=== PATIENT | female | born 1950 | race Caucasian/White ===

== ENCOUNTER 2016-05-22 09:35 | Day surgery (SDC) | payer OTHER ==
[2016-05-22 09:48] VITALS: BMI 28.1
[2016-05-22] MEDS ORDERED: PROPOFOL 20 ML ONE (11:18)
[2016-05-22] MEDS ORDERED: MIDAZOLAM HCL 2 MG/2 ML SINGLE DOSE VIAL ONE (11:18)
[2016-05-22] MEDS ORDERED: VASOPRESSIN 20 UNITS/ML VIAL IV ONE (11:23)
--- NOTE | 2016-05-22 11:24 | OP ---
Operative Note - Note: Operative Date: 05/22/16 Operation: Placement of midurethral sling Surgeon: Mio Mcintyre MD. Anesthesia: General Drains & Tubes with Location: mid urethral sling James Operative Report Dictated: Yes
[2016-05-22] MEDS ORDERED: ceFAZolin SODIUM 1 GM VIAL IVPB ONE (11:46)
[2016-05-22] MEDS ORDERED: ceFAZolin SODIUM 1 GM VIAL ONE (11:46)
[2016-05-22] MEDS ORDERED: HYDROmorphone HCL CARPU-JECT 1 MG/1 ML DISP.SYRIN IVPUSH PRN (14:11)
[2016-05-22] MEDS ORDERED: LACTATED RINGERS SOLUTION 1,000 ML IV SCH (14:15)
[2016-05-22 14:51] VITALS: TEMP 97.8
[2016-05-22] MEDS ORDERED: oxyCODONE HCL 5 MG TABLET PO PRN (15:20)
[2016-05-22 15:21] VITALS: BP 140/66; PULSE 77
--- NOTE | 2016-05-23 13:32 | PATH ---
Surgical Pathology Report Patient Name: HOLDEN FOX Med. Rec. #: [id number] /Age/Gender: 1950 (Age: 65) / F Account: [id number] Location: [facility] SURGICAL Taken: 05/22/2016 Received: 05/22/2016 Reported: 05/23/2016 Physicians: Mio Mcintyre M.D. Specimen(s) Received PORTION OF ANTERIOR VAGINAL WALL Clinical History Urinary incontinence Final Diagnosis PORTION OF ANTERIOR VAGINAL WALL, EXCISION: BENIGN SQUAMOUS MUCOSA WITH ATROPHIC CHANGES AND VASCULAR CONGESTION. Electronically Signed Shmuel Ludwig M.D. Gross Description Received in formalin labeled "portion of anterior vaginal wall" are 2 pink-llanos, irregular portions of soft tissue measuring 0.7 x 0.5 x 0.2 cm and 1.8 x 0.7 x 0.3 cm, consistent with vaginal mucosa. Rn Plasma Center sections are submitted in one cassette. /05/22/201605/22/2016
--- NOTE | 2016-07-06 08:57 | OP ---
DATE OF OPERATION: 05/22/2016 PREOPERATIVE DIAGNOSIS: Stress incontinence. POSTOPERATIVE DIAGNOSIS: Stress incontinence. PROCEDURE PERFORMED: Mid-urethral sling placement. SURGEON: Mio Mcintyre MD INDICATIONS: The patient presented complaining of stress incontinence, as well as some frequency and urgency. After doing a urodynamic evaluation, it was somewhat difficult to determine However, the patient had severe lifestyle change due to her stress incontinence. After discussing the treatment options (including observation) and a previous attempt at Kegel exercise, the patient elected to undergo the above-stated procedure. The risks and benefits of treatment and alternatives were discussed in detail, including worsening urgency and frequency, reoperation as well. DESCRIPTION OF PROCEDURE: The patient was brought to the operating room and placed in the supine position. Once general anesthesia was administered, the patient was transferred to the dorsal lithotomy position, and prepped and draped in standard sterile fashion. Intravenous antibiotics were given. At this time, a Mendieta catheter was placed to suction drainage and then straight drainage. The labia was retracted using 2-0 Vicryl. Lidocaine 2% with epinephrine was used to anesthetize the anterior vaginal mucosa approximately 1 cm proximal to the meatus. At this time an approximately 2-cm incision was made in transverse fashion, 1 cm proximal to the meatus. The periurethral tissue was dissected off the anterior vaginal wall. At this time, the periurethral space was created and the endopelvic fascia was identified bilaterally. The obturator and urethral sling was then placed through the endopelvic fascia in the standard fashion. The sling was snug but no too tight in the mid-urethral position, and it was not curled or twisted. 2-0 Vicryl was used to close the incision. Urine was clear throughout the entire case. Betadine-soaked vaginal packing was placed. The patient was brought to the recovery room in stable and satisfactory condition, with the Mendieta draining clear urine to straight drainage. MIO MCINTYRE M.D. MARIYA/[id number]
== END 2016-05-22 15:20 | disposition home or self-care (01) ==
LOC: JASU-SURG 09:35
PROVIDERS: ATTEND Urology
PROC: 0TSC0ZZ Reposition Bladder Neck, Open Approach (ICD-10-PCS; principal; 2016-05-22 11:00)
DX: N39.3 Stress incontinence (female) (male) (principal)
CPT/HCPCS: 88302-TC; 94760

== ENCOUNTER 2017-07-12 06:01 | Day surgery (SDC) | payer OTHER ==
[2017-07-11 16:49] VITALS: BMI 27.1
[~2017-07-12 06:01] MED LIST: LIDOCAINE HCL 1% PRESERVATIVE FREE - 30ML VIAL IJ ONE; ceFAZolin SODIUM 1 GM VIAL IVPB ONE
[2017-07-12] MEDS ORDERED: LIDOCAINE HCL 1%, 10 MG/ML (20ML VIAL) ONE (07:44)
[2017-07-12] MEDS ORDERED: MIDAZOLAM HCL 2 MG/2 ML SINGLE DOSE VIAL ONE (07:53)
[2017-07-12] MEDS ORDERED: PROPOFOL 20 ML ONE (07:53)
[2017-07-12] MEDS ORDERED: LIDOCAINE HCL/PF 2% SDV 5ML VIAL ONE (07:53)
--- NOTE | 2017-07-12 08:08 | HP ---
Admitting History and Physical - Admission Chief Complaint: right axillary mass/cyst History of Present Illness: 66 y.o. female with > one month history of right axillary cystic mass associated with pain and redness treated with antibiotics by PMD. The mass persisted so patient was advised excisional biopsy of the mass History Source: Patient Limitations to Obtaining History: No Limitations - Past Medical History Cardiovascular: Yes: HTN ...: No Endocrine: Yes: Diabetes Mellitus Additional Past Medical History: left breast cancer - Past Surgical History Additional Past Surgical History: left breast conservation surgery - Smoking History Smoking history: Former smoker Have you smoked in the past 12 months: No - Alcohol/Substance Use Hx Alcohol Use: No History of Substance Use: reports: None Home Medications - Allergies Allergies/Adverse Reactions: Allergies Allergy/AdvReac Type Severity Reaction Status Date / Time No Known Drug Allergies Allergy Verified 07/12/17 06:25 - Home Medications Home Medications: Ambulatory Orders Insulin (Levemir) [Levemir Vial] 50 unit SQ BID 05/23/15 Metformin HCl 500 mg PO BID 05/23/15 Losartan Potassium 50 mg PO BID 05/21/16 Amlodipine Besylate 5 mg PO DAILY 07/11/17 Physical Examination Vital Signs: Vital Signs Temperature 97.4 F L 07/12/17 06:20 Pulse Rate 75 07/12/17 06:20 Respiratory Rate 16 07/12/17 06:20 Blood Pressure 131/75 07/12/17 06:20 O2 Sat by Pulse Oximetry (%) 97 07/12/17 06:21 Constitutional: Yes: Well Nourished Eyes: Yes: Conjunctiva Clear HENT: Yes: Normocephalic Neck: Yes: Supple Cardiovascular: Yes: Regular Rate and Rhythm Respiratory: Yes: CTA Bilaterally Gastrointestinal: Yes: Soft ...Rectal Exam: Yes: Deferred Integumentary: Yes: Other (right axilla: 2 cm cystic mass with well-defined borders) Problem List - Problems (1) Axillary mass Assessment/Plan: Excisional biopsy of right axillary mass/cyst Qualifiers: Laterality: right Qualified Code(s): R22.31 - Localized swelling, mass and lump, right upper limb
[2017-07-12] MEDS ORDERED: ceFAZolin SODIUM 1 GM VIAL ONE (08:13)
[2017-07-12] MEDS ORDERED: ceFAZolin SODIUM 1 GM VIAL IVPB ONE (08:16)
[2017-07-12] MEDS ORDERED: LIDOCAINE HCL 1% PRESERVATIVE FREE - 30ML VIAL IJ ONE (08:33)
[2017-07-12] MEDS ORDERED: ONDANSETRON 4 MG/2 ML VIAL IVPUSH PRN (09:04)
[2017-07-12] MEDS ORDERED: oxyCODONE HCL 5 MG TABLET PO PRN (09:04)
[2017-07-12] MEDS ORDERED: ACETAMINOPHEN 325 MG TABLET (FP) PO PRN (09:04)
--- NOTE | 2017-07-12 09:09 | OP ---
Operative Note - Note: Operative Date: 07/12/17 Pre-Operative Diagnosis: right axillary csyt Operation: Excsion, right axillary cyst/mass Findings: 1.5 cm cystic mass with central sinus draining seropurulent fluid Surgeon: Austin Cooper Anesthesia: Local, MAC Specimens Removed: axillary cyst, fluid c/s Estimated Blood Loss (mls): 5 Operative Report Dictated: Yes
[2017-07-12] MEDS ORDERED: LACTATED RINGERS SOLUTION 1,000 ML IV SCH (09:15)
--- NOTE | 2017-07-12 09:28 | OP ---
DATE OF OPERATION: 07/12/2017 PROCEDURE: Excision of right axillary mass/cyst. PREOPERATIVE DIAGNOSIS: Right axillary mass/cyst. POSTOPERATIVE DIAGNOSIS: Right axillary mass/cyst. SURGEON: Austin Cooper MD ANESTHESIA: Local with sedation. FINDINGS ON PROCEDURE: This is a 66-year-old female who presents with more than 1 month history of cystic appearance of cystic painful and erythematous mass of the right axilla. Patient was given oral antibiotics by the PMD with resolution of the inflammatory process. On physical examination, patient has a 2-cm cystic mass with a central punctate sinus draining thick cheesy material. So, patient was advised excisional biopsy of the mass, and consent was obtained after discussing the risks, benefits, and alternatives of the procedure. DESCRIPTION OF PROCEDURE: Patient was brought to the operating room and placed in supine position, the right arm abducted 90 degrees. A roll was placed under patient's right shoulder. The operative site was prepped and draped in the usual sterile fashion. Patient was given intravenous sedation by the anesthesia team. Using lidocaine 1%, local anesthesia was administered to the proposed incision site. A 2.5 x 1 cm elliptical incision over the mass incorporating the central sinus was made using scalpel blade No. 15. Some seropurulent fluid extruding from the central sinus was sampled for culture and sensitivity status. Further dissection of the elliptical incision was made using Bovie cautery down to the subcutaneous tissue incorporating the entire cyst together with the ellipse of skin. Hemostasis was achieved using Bovie cautery. The wound was copiously irrigated with sterile normal saline until the return was clear. The wound was closed with interrupted Biosyn 4-0 suture for the dermis and continuous Biosyn 4-0 suture for the subcuticular layer. The wound closure was reinforced with Steri-Strips and covered with pressure dressing. The patient was transferred to the post-anesthesia care unit in satisfactory condition. ESTIMATED BLOOD LOSS: About 5 mL. WOUND CLASS: Contaminated. Patient received 1 g of Ancef prior to the start of the procedure. Esau [id number] MTDD
[2017-07-12 10:07] VITALS: TEMP 97.7
[2017-07-12 14:25] VITALS: BP 147/66; PULSE 67
--- NOTE | 2017-07-15 16:12 | PATH ---
Surgical Pathology Report Patient Name: HOLDEN FOX [facility]. Rec. #: [id number] /Age/Gender: 1950 (Age: 66) / F Account: [id number] Location: [facility] Taken: 07/12/2017 Received: 07/12/2017 Reported: 07/15/2017 Physicians: Austin Cooper M.D. Specimen(s) Received MASS/CYST, RIGHT AXILLA Clinical History Right axillary mass/cyst Final Diagnosis MASS/CYST RIGHT AXILLA, EXCISION: SEGMENT OF SKIN WITH SEVERE ACUTE AND CHRONIC INFLAMMAITON, FAT NECROSIS, HISTIOCYTIC REACTION INCLUDING MULTINUCLEATED GIANT CELLS. COMEMNT: FINDINGS ARE SUGGESTIVE OF A RUPTURED CYST WITH ABSCESS FORMATION. Electronically Signed Raudel Rockwell M.D. Gross Description Received in formalin labeled "mass/cyst right axilla," is a 1.8 x 1.0 cm llanos, elliptical, unoriented portion of skin excised to depth of 1.0 cm. Sectioning reveals a llanos-yellow, heterogeneous lesion. [employer] sections are submitted in one cassette. /07/12/2017 saudi07/12/2017
== END 2017-07-12 12:40 | disposition home or self-care (01) ==
LOC: JASU-SURG 06:01
PROVIDERS: ATTEND Surgery
PROC: 0JB60ZZ Excision of Chest Subcutaneous Tissue and Fascia, Open Approach (ICD-10-PCS; principal; 2017-07-12 08:00)
DX: D21.3 Benign neoplasm of connective and other soft tissue of thorax (principal); I10 Essential (primary) hypertension; E11.9 Type 2 diabetes mellitus without complications; Z79.4 Long term (current) use of insulin
CPT/HCPCS: 82962; 87070; 87075; 87205; 88307-TC; 94760

== ENCOUNTER 2019-05-10 13:44 | Emergency (ER) | payer OTHER ==
[2019-05-10] MEDS ORDERED: ACETAMINOPHEN 325 MG TABLET (FP) PO ONE (13:59)
--- NOTE | 2019-05-10 14:03 | PDOC ---
History of Present Illness - General Stated Complaint: COUGH, THROAT, BACK Time Seen by Provider: 05/10/19 13:56 History Source: Patient - History of Present Illness Timing/Duration: reports: other Associated Symptoms: reports: cough, fever/chills Past History - Past Medical History Allergies/Adverse Reactions: Allergies Allergy/AdvReac Type Severity Reaction Status Date / Time No Known Drug Allergies Allergy Verified 05/10/19 13:53 Home Medications: Ambulatory Orders Insulin (Levemir) [Levemir Vial] 50 unit SQ BID 05/23/15 metFORMIN HCL [Metformin HCl] 500 mg PO BID 05/23/15 Losartan Potassium 50 mg PO BID 05/21/16 Amlodipine Besylate 5 mg PO DAILY 07/11/17 Ibuprofen 1 tab PO TID PRN #30 tablet 07/12/17 Anemia: No Asthma: No Cancer: Yes (BREAST LEFT 05/2015) Cardiac Disorders: No CVA: No COPD: No CHF: No Dementia: No Diabetes: Yes GI Disorders: No Disorders: No HTN: Yes Hypercholesterolemia: No Liver Disease: No Seizures: No Thyroid Disease: No - Surgical History Abdominal Surgery: No Appendectomy: No Cardiac Surgery: No Cholecystectomy: No Lung Surgery: No Neurologic Surgery: No Orthopedic Surgery: No - Psycho Social/Smoking Cessation Hx Smoking History: Never smoked Have you smoked in the past 12 months: No Information on smoking cessation initiated: No Hx Alcohol Use: No Drug/Substance Use Hx: No Substance Use Type: None Hx Substance Use Treatment: No Review of Systems - Review of Systems Constitutional: Yes: Chills, Fever Respiratory: Yes: Cough. No: Wheezing Cardiac (ROS): No: Chest Pain *Physical Exam - Vital Signs Last Vital Signs Temp Pulse Resp BP Pulse Ox 100.0 F H 122 H 22 H 147/79 100 05/10/19 13:44 05/10/19 13:44 05/10/19 13:44 05/10/19 13:44 05/10/19 13:44 - Physical Exam General Appearance: Yes: Appropriately Dressed. No: Apparent Distress HEENT: positive: Normal Voice. negative: Scleral Icterus (R), Scleral Icterus (L) Neck: positive: Supple Respiratory/Chest: positive: Lungs Clear, Normal Breath Sounds. negative: Respiratory Distress Cardiovascular: positive: Regular Rate, S1, S2 Gastrointestinal/Abdominal: positive: Soft Integumentary: positive: Dry, Warm Neurologic: positive: Fully Oriented, Alert, Abnormal Cranial NS ED Treatment Course - RADIOLOGY Radiology Studies Ordered: Category Date Time Status CHEST X-RAY PORTABLE* [RAD] Stat Radiology 05/10/19 13:59 Ordered Medical Decision Making - Medical Decision Making 05/10/19 14:00 68 yo F, remote breast ca, DM, here w/ cough w/ subj fever x 3-4 days, w/ ?sob today see exam Viral illness Low grade fever w/ HR 122 and sating 100% on RA -cxr pending Discharge - Discharge Information Problems reviewed: Yes Clinical Impression/Diagnosis: URI (upper respiratory infection) Qualifiers: URI type: unspecified viral URI Qualified Code(s): J06.9 - Acute upper respiratory infection, unspecified - Follow up/Referral - Patient Discharge Instructions - Post Discharge Activity
[2019-05-10 14:09] VITALS: BP 147/79; PULSE 122; TEMP 100
--- NOTE | 2019-05-10 15:11 | PDOC ---
*Physical Exam - Vital Signs Last Vital Signs Temp Pulse Resp BP Pulse Ox 100.0 F H 122 H 22 H 147/79 100 05/10/19 13:44 05/10/19 13:44 05/10/19 13:44 05/10/19 13:44 05/10/19 13:44 Medical Decision Making - Medical Decision Making 05/10/19 15:10 cxr shows no acute process. repeat HR 106, 02 sat 98% on RA. Discharge home Patient does not meet testing criteria at this time. Discharge - Discharge Information Problems reviewed: Yes Clinical Impression/Diagnosis: URI (upper respiratory infection) Qualifiers: URI type: unspecified viral URI Qualified Code(s): J06.9 - Acute upper respiratory infection, unspecified Condition: Good Disposition: HOME - Follow up/Referral Referrals: Daquan Brandt [Primary Care Provider] - - Patient Discharge Instructions Patient Printed Discharge Instructions: DI for Viral Upper Respiratory Infection -- Adult Additional Instructions: You were seen for your cough and possible Coronavirus (COVID-19) Your chest xray was normal Please call the [facility] testing center to make an appointment at or you can call [facility] at from 8:30 AM to 6 PM; or you can visit the [facility] website: [email or web address] for more information about testing at the [facility]. Take Tylenol 650 mg every 6 hours as needed for fever or pain. You may take Robitussin or other [id number] cough syrup. Follow the dosing instructions on the bottle. Warm tea, honey, and salt water gargles may help your symptoms. Please take precautions and self quarantine for 2 weeks and follow-up with your primary care doctor and the Department of Health. Return to the nearest emergency department for shortness of breath, difficulty breathing, chest pain, or if you have any changes in your symptoms. - Post Discharge Activity
== END 2019-05-10 15:19 | disposition home or self-care (01) ==
LOC: JER 13:44
DX: J06.9 Acute upper respiratory infection, unspecified (principal)
CPT/HCPCS: 71045-TC-FY; 99283-25

== ENCOUNTER 2022-07-06 10:52 | Day surgery (SDC) | payer OTHER ==
[2022-07-06] MEDS ORDERED: FERRIC CARBOXYMALTOSE 750 MG in SODIUM CHLORIDE 250 ML IVPB ONE (12:00)
[2022-07-06 17:45] VITALS: BP 100/62; PULSE 70; RESP 16; TEMP 98.3
== END 2022-07-06 13:15 | disposition home or self-care (01) ==
LOC: FINFUSION 10:52 → FM/S 10:52 → FINFUSION 13:15
PROVIDERS: ATTEND Family Medicine
PROC: 3E033GC Introduction of Other Therapeutic Substance into Peripheral Vein, Percutaneous Approach (ICD-10-PCS; principal; 2022-07-06)
DX: D50.9 Iron deficiency anemia, unspecified (principal)
CPT/HCPCS: 96365; J1439

== ENCOUNTER 2022-07-13 11:08 | Day surgery (SDC) | payer OTHER ==
[2022-07-13] MEDS ORDERED: FERRIC CARBOXYMALTOSE 750 MG in SODIUM CHLORIDE 250 ML IVPB ONE (11:30)
[2022-07-13 12:27] VITALS: BP 113/82; PULSE 69; RESP 18; TEMP 98.4
== END 2022-07-13 12:28 | disposition home or self-care (01) ==
LOC: FINFUSION 11:08 → FM/S 11:09 → FINFUSION 12:28
PROVIDERS: ATTEND Family Medicine
PROC: 3E033GC Introduction of Other Therapeutic Substance into Peripheral Vein, Percutaneous Approach (ICD-10-PCS; principal; 2022-07-13)
DX: D50.9 Iron deficiency anemia, unspecified (principal)
CPT/HCPCS: 96365; J1439

== ENCOUNTER 2023-12-20 09:09 | Day surgery (SDC) | payer OTHER ==
[2023-12-20] MEDS: FERRIC CARBOXYMALTOSE 750 MG in SODIUM CHLORIDE 250 ML IVPB ONE (09:30)
[2023-12-20] MEDS ORDERED: FERRIC CARBOXYMALTOSE 750 MG in SODIUM CHLORIDE 250 ML IVPB ONE (11:00)
[2023-12-20 11:46] VITALS: RESP 18; TEMP 98.2
[2023-12-20 11:49] VITALS: BP 113/58; PULSE 66
== END 2023-12-20 11:00 | disposition home or self-care (01) ==
LOC: JONCCHEMO 09:09
PROVIDERS: ATTEND Internal Medicine Hematology & Oncology
PROC: 3E033GC Introduction of Other Therapeutic Substance into Peripheral Vein, Percutaneous Approach (ICD-10-PCS; principal; 2023-12-20)
DX: D50.9 Iron deficiency anemia, unspecified (principal)
CPT/HCPCS: 96365; J1439

== ENCOUNTER 2023-12-27 08:54 | Day surgery (SDC) | payer OTHER ==
[2023-12-27] MEDS: FERRIC CARBOXYMALTOSE 750 MG in SODIUM CHLORIDE 250 ML IVPB ONE (09:19)
[2023-12-27 15:06] VITALS: RESP 20
[2023-12-27 15:08] VITALS: BP 128/79; PULSE 70; TEMP 98
== END 2023-12-27 10:25 | disposition home or self-care (01) ==
LOC: JONCCHEMO 08:54 → J7W 09:19 → JONCCHEMO 10:25
PROVIDERS: ATTEND Internal Medicine Hematology & Oncology
PROC: 3E033GC Introduction of Other Therapeutic Substance into Peripheral Vein, Percutaneous Approach (ICD-10-PCS; principal; 2023-12-27)
DX: D50.9 Iron deficiency anemia, unspecified (principal)
CPT/HCPCS: 96365; J1439